=== PATIENT | male | born 1950 | race Caucasian/White ===

== ENCOUNTER 2024-10-02 13:02 | Outpatient (CLI) | payer MEDICARE, MEDICAID | END 2024-10-03 23:59 | disposition home or self-care (01) | LOC: RAD 13:02 | PROVIDERS: ATTEND Nurse Practitioner Family | DX: R13.14 Dysphagia, pharyngoesophageal phase (principal); G35 Multiple sclerosis; Z79.899 Other long term (current) drug therapy; Z79.84 Long term (current) use of oral hypoglycemic drugs; W44.F3XA Food entering into or through a natural orifice, initial encounter | CPT/HCPCS: 74230 ==